=== PATIENT | male | born 1990 | race Caucasian/White ===

== ENCOUNTER 2021-01-07 08:20 | Emergency (ER) | payer OTHER ==
[2021-01-07] MEDS ORDERED: HYDROmorphone 0.5 MG/0.5 ML SYRINGE IVP STA ×2 (08:40→10:30)
[2021-01-07] MEDS ORDERED: KETOROLAC 15 MG/ML 1 ML VIAL IVP STA (08:40)
[2021-01-07 09:01] VITALS: RESP 18
[2021-01-07 09:13] LABS: Basophils % (A) 0 %; Eosinophils # (A) 0.1 k/uL (0-0.7); Eosinophils % (A) 2 %; HCT 47.8 % (39.0-53.0); HGB 15.8 gm/dL (13.0-17.5); Lymphocytes # (A) 2.7 k/uL (1.0-4.8); Lymphocytes % (A) 40 %; MCH 28.8 pg (25.0-35.0); MCV 87.1 fL (80.0-100.0); Mean Platelet Volume 7.9; Monocytes # (A) 0.5 k/uL (0-1.0); Monocytes % (A) 7 %; Neutrophils # (A) 3.4 k/uL (1.3-7.7); Neutrophils % (A) 50 %; Platelet Count 190 k/uL (150-450); RBC 5.49 m/uL (4.30-5.90); RDW 13.4 % (11.5-15.5); WBC 6.8 k/uL (3.8-10.6)
[2021-01-07 09:21] LABS: ALT 55 U/L (4-49); AST 36 U/L (17-59); African American GFR (CKD) >90 (>60 ml/min/1.73 sqM); Albumin 4.5 g/dL (3.5-5.0); Alkaline Phosphatase 96 U/L (38-126); Anion Gap 8 mmol/L; Blood Urea Nitrogen 16 mg/dL (9-20); Calcium 9.6 mg/dL (8.4-10.2); Carbon Dioxide 24 mmol/L (22-30); Chloride 108 mmol/L (98-107); Glucose 119 mg/dL (74-99); Lipase 55 U/L (23-300); Non-African American GFR(CKD) >90 (>60 ml/min/1.73 sqM); Potassium 4.6 mmol/L (3.5-5.1); Sodium 140 mmol/L (137-145); Total Bilirubin 0.7 mg/dL (0.2-1.3); Total Protein 7.6 g/dL (6.3-8.2)
--- NOTE | 2021-01-07 09:55 | XR ---
EXAMINATION TYPE: XR chest 2V DATE OF EXAM: 01/07/2021 COMPARISON: NONE HISTORY: Chest pain and spasm. TECHNIQUE: Frontal and lateral views of the chest are obtained. FINDINGS: Low lung volumes. There is no focal air space opacity, pleural effusion, or pneumothorax s een. The cardiac silhouette size is within normal limits. The osseous structures are intact. IMPRESSION: No acute cardiopulmonary process.
--- NOTE | 2021-01-07 10:01 | ED ---
General Adult HPI - General Chief complaint: Abdominal Pain Stated complaint: Abd pain Time Seen by Provider: 01/07/21 08:25 Source: patient, RN notes reviewed, old records reviewed Mode of arrival: ambulatory Limitations: no limitations - History of Present Illness Initial comments: This is a 30-year-old male presents emergency department stating that he pulled abdominal muscle today. Patient states he twisted to pick something up and felt a tear across the abdomen. Patient states anytime he moves or tries to get up and starts to spasm again. Patient states he did this years ago and it feels exactly same. Patient denies any chest pain palpitations or difficulty breathing. Patient denies any back pain. Patient denies any recent fever chill s or cough per patient denies any nausea vomiting diarrhea. Patient states he lays in bed and doesn't move he has no pain at all. Patient states he twisted her left or right knee causes some pain across the upper abdomen. - Related Data Previous Rx's Medication Instructions Recorded Cyclobenzaprine [Flexeril] 10 mg PO TID #20 tab 01/07/21 Ketorolac [Toradol] 10 mg PO Q6HR #15 tab 01/07/21 Allergies Allergy/AdvReac Type Severity Reaction Status Date / Time No Known Allergies Allergy Verified 01/07/21 09:18 Review of Systems ROS Statement: Those systems with pertinent positive or pertinent negative responses have been documented in the HPI. ROS Other: All systems not noted in ROS Statement are negative. Past Medical History Past Medical History: No Reported History History of Any Multi-Drug Resistant Organisms: None Reported Past Surgical History: No Surgical Hx Reported Past Psychological History: No Psychological Hx Reported Smoking Status: Never smoker Past Alcohol Use History: Occasional Past Drug Use History: None Reported General Exam - General Exam Comments Initial Comments: GENERAL: Patient is well-developed and well-nourished. Patient is nontoxic and well-hy drated and is in moderate distress. ENT: Neck is soft and supple. No significant lymphadenopathy is noted. Oropharynx is clear. Moist mucous membranes. Neck has full range of motion without elici ting any pain. EYES: The sclera were anicteric and conjunctiva were pink and moist. Extraocular movements were intact and pupils were equal round and reactive to light. Eyelids were unremarkable. PULMONARY: Unlabored respirations. Good breath sounds bilaterally. No audible rales rhonchi or wheezing was noted. CARDIOVASCULAR: There is a regular rate and rhythm without any murmurs gallops or rubs. ABDOMEN: Soft and nontender with normal bowel sounds. SKIN: Skin is clear with no lesions or rashes and otherwise unremarkable. NEUROLOGIC: Patient is alert and oriented x3. Cranial nerves II through XII are grossly intact. Motor and sensory are also intact. Normal speech, volume and content. Symmetrical smile. MUSCULOSKELETAL: Normal extremities with adequate strength and full range of motion. LYMPHATICS: No significant lymphadenopathy is noted PSYCHIATRIC: Normal psychiatric evaluation. Limitations: no limitations Course Vital Signs 01/07/21 01/07/21 01/07/21 08:23 08:48 09:45 Temperature 97.9 F Pulse Rate 101 H 94 Respiratory 18 18 Rate Blood Pressure 139/99 129/82 O2 Sat by Pulse 97 97 Oximetry Medical Decision Making - Medical Decision Making EKG shows sinus tachycardia at 107 bpm W[place] interval is on a 68 QRS is 90 QT interval 3:30 QTC is 440. Patient's EKG shows no ST segment elevation or depression. Chest x-ray shows no acute abnormality. Patient was comfortable as long as he wasn't moving. Patient went to get out of bed and it hurt his abdomen across the front radiating around to the flanks. Patient then started to walk and felt considerably better but still can feel the pain while he was walking. Patient states his lungs remain still he has no pain. - Lab Data Result diagrams: 01/07/21 08:47 01/07/21 08:47 Lab Results 01/07/21 01/07/21 Range/Units 08:47 08:47 WBC 6.8 (3.8-10.6) k/uL RBC 5.49 (4.30-5.90) m/uL Hgb 15.8 (13.0-17.5) gm/dL Hct 47.8 (39.0-53.0) % MCV 87.1 (80.0-100.0) fL MCH 28.8 (25.0-35.0) pg MCHC 33.0 (31.0-37.0) g/dL RDW 13.4 (11.5-15.5) % Plt Count 190 (150-450) k/uL MPV 7.9 Neutrophils % 50 % Lymphocytes % 40 % Monocytes % 7 % Eosinophils % 2 % Basophils % 0 % Neutrophils # 3.4 (1.3-7.7) k/uL Lymphocytes # 2.7 (1.0-4.8) k/uL Monocytes # 0.5 (0-1.0) k/uL Eosinophils # 0.1 (0-0.7) k/uL Basophils # 0.0 (0-0.2) k/uL Sodium 140 (137-145) mmol/L Potassium 4.6 (3.5-5.1) mmol/L Chloride 108 H (98-107) mmol/L Carbon Dioxide 24 (22-30) mmol/L Anion Gap 8 mmol/L BUN 16 (9-20) mg/dL Creatinine 1.01 (0.66-1.25) mg/dL Est GFR (CKD-EPI)AfAm >90 (>60 ml/min/1.73 sqM) Est GFR (CKD-EPI)NonAf >90 (>60 ml/min/1.73 sqM) Glucose 119 H (74-99) mg/dL Calcium 9.6 (8.4-10.2) mg/dL Total Bilirubin 0.7 (0.2-1.3) mg/dL AST 36 (17-59) U/L ALT 55 H (4-49) U/L Alkaline Phosphatase 96 (38-126) U/L Total Protein 7.6 (6.3-8.2) g/dL Albumin 4.5 (3.5-5.0) g/dL Lipase 55 (23-300) U/L Disposition Clinical Impression: Abdominal muscle strain Disposition: HOME SELF-CARE Condition: Good Instructions (If sedation given, give patient instructions): Muscle Strain (ED) Prescriptions: Cyclobenzaprine [Flexeril] 10 mg PO TID #20 tab Ketorolac [Toradol] 10 mg PO Q6HR #15 tab Is patient prescribed a controlled substance at d/c from ED?: No Referrals: None,Stated [Primary Care Provider] - 1-2 days Time of Disposition: 10:28
[2021-01-07 10:45] VITALS: BP 112/70; PULSE 78; TEMP 97.8
== END 2021-01-07 10:54 | disposition home or self-care (01) ==
LOC: EC 08:20
DX: S39.011A Strain of muscle, fascia and tendon of abdomen, initial encounter (principal); X50.1XXA Overexertion from prolonged static or awkward postures, initial encounter; R07.9 Chest pain, unspecified
CPT/HCPCS: 36415; 93005; 80053; 83690; 85025; 71046; 99284; 96365; 96375; J1885; J1170